=== PATIENT | female | born 1985 | race African-American/Black ===

== ENCOUNTER 2021-11-30 03:53 | Inpatient (IN) ==
[2021-11-30 04:32] LABS: Mucus,Urine Occasional /LPF (Occasional); RBC,Urine 1 /HPF (0-4); Squamous Epithelial Cell,Urine Occasional /HPF (0-10); Urine Appearance Clear (Clear); Urine Color Yellow (Yellow)
[2021-11-30 04:33] LABS: Bilirubin,Urine Negative (Negative); Blood, Urine Large mg/dL (Negative); Glucose,Urine (UA) Negative (Negative); Ketones,Urine 15 mg/dL (Negative); Nitrite,Urine Negative (Negative); Protein,Urine Negative (Negative); Urine Urobilinogen 0.2 eU/dL (<2.0); Urine pH 6.5 (4.5-8.0)
[2021-11-30] MEDS ORDERED: LACTATED RINGERS 250 ML IV ONE (05:31)
[2021-11-30] MEDS ORDERED: OXYTOCIN/LR 20 UNIT/1,000 ML BAG IV ONE ×2 (05:31→12:43)
[2021-11-30] MEDS ORDERED: miSOPROStoL 200 MCG TABLET RECTAL PRN (05:31)
[2021-11-30] MEDS ORDERED: LACTATED RINGERS 500 ML IV PRN (05:31)
[2021-11-30] MEDS ORDERED: METHYLERGONOVINE 0.2 MG/1 ML AMP IM PRN (05:31)
[2021-11-30] MEDS ORDERED: ONDANSETRON 4 MG/2 ML VIAL IV PRN ×2 (05:31→12:43)
[2021-11-30] MEDS ORDERED: TRANEXAMIC ACID 1,000 MG in SODIUM CHLORIDE 0.9% 100 ML IV PRN (05:31)
[2021-11-30] MEDS ORDERED: MEPERIDINE 50 MG/1 ML VIAL IV PRN (05:31)
[2021-11-30] MEDS ORDERED: CARBOPROST TROMETHAMINE 250 MCG/ML AMP IM PRN (05:31)
[2021-11-30] MEDS ORDERED: BUTORPHANOL 2 MG/ML VIAL IV PRN (05:31)
[2021-11-30 06:01] LABS: Basophils % 0.4 % (0.0-0.8); Eosinophils # 0.1 10*3/uL (0.0-0.87); Eosinophils % 0.6 % (0.00-10.9); Hemoglobin 10.3 GM/DL (12.0-16.0); Immature Granulocytes % 0.9 %; Immature Granulocytes Absolute 0.07 #; Lymphocytes # 1.7 10*3/uL (1.4-4.0); Lymphocytes % 21.4 % (21.3-54.2); Mean Corpuscular HGB Conc 32.2 GM/DL (32-36); Mean Corpuscular Volume 79.2 FL (87-102); Mean Platelet Volume 11.3 FL (9.6-12.0); Monocytes # 0.7 10*3/uL (0.11-0.8); Monocytes % 8.7 % (1.7-12.7); Platelet Count 181 T/CUMM (130-400); Red Blood Count 4.04 MC/CUMM (3.8-5.5); Red Cell Distribution Width 16.4 % (9.3-17.3); White Blood Count 7.8 T/CUMM (4-12)
[2021-11-30] MEDS ORDERED: AMPICILLIN INJ 2,000 MG in SODIUM CHLORIDE 0.9% 100 ML IV ONE (06:01)
[2021-11-30] MEDS: LACTATED RINGERS 1,000 ML IV SCH ×2 (06:12→07:40)
[2021-11-30] MEDS ORDERED: LACTATED RINGERS 250 ML IV PRN (06:59)
[2021-11-30] MEDS ORDERED: NALOXONE 0.4 MG/ML VIAL IV PRN (06:59)
[2021-11-30] MEDS ORDERED: CITRIC ACID/SODIUM CITRATE 30 ML UDCUP PO ONE (06:59)
[2021-11-30] MEDS ORDERED: LACTATED RINGERS 1,000 ML IV ONE (06:59)
[2021-11-30] MEDS ORDERED: hydrOXYzine HCL 25 MG/1 ML VIAL IM PRN (06:59)
[2021-11-30] MEDS ORDERED: diphenhydrAMINE 50 MG/1 ML VIAL IV PRN ×2 (06:59)
[2021-11-30] MEDS ORDERED: ONDANSETRON 4 MG/2 ML VIAL IV ONE (06:59)
[2021-11-30] MEDS ORDERED: FAMOTIDINE 20 MG/2 ML VIAL IV ONE (06:59)
[2021-11-30] MEDS ORDERED: PROMETHAZINE 25 MG/1 ML VIAL IM ONE (06:59)
[2021-11-30] MEDS ORDERED: LACTATED RINGERS 500 ML IV ONE (06:59)
[2021-11-30] MEDS ORDERED: ePHEDrine 50 MG/ML VIAL IV PRN (06:59)
[2021-11-30] MEDS ORDERED: fentaNYL 2 MCG/ROPIV 0.2% EPID 100 ML EPIDURAL SCH (07:00)
[2021-11-30] MEDS ORDERED: LACTATED RINGERS 1,000 ML IV SCH ×2 (07:00)
[2021-11-30] MEDS ORDERED: OXYTOCIN/D5LR 20 UNIT/1,000 ML PREMIX IV SCH (08:00)
[2021-11-30] MEDS ORDERED: OXYTOCIN/LR 20 UNIT/1,000 ML BAG IV SCH (08:30)
[2021-11-30] MEDS ORDERED: AMPICILLIN INJ 1,000 MG in SODIUM CHLORIDE 0.9% 100 ML IV SCH (10:00)
[2021-11-30 10:52] LABS: Bilirubin,Urine Small mg/dL (Negative); Blood, Urine Small mg/dL (Negative); Glucose,Urine (UA) Negative (Negative); Ketones,Urine >160 mg/dL (Negative); Mucus,Urine Moderate /LPF (Occasional); Nitrite,Urine Negative (Negative); Protein,Urine 100 mg/dL (Negative); RBC,Urine 23 /HPF (0-4); Squamous Epithelial Cell,Urine Occasional /HPF (0-10); Urine Appearance Clear (Clear); Urine Color Yellow (Yellow); Urine Specific Gravity > 1.030 (1.001-1.035); Urine Urobilinogen 0.2 eU/dL (<2.0); Urine pH 6.5 (4.5-8.0)
[2021-11-30] MEDS ORDERED: METHYLERGONOVINE 0.2 MG/1 ML AMP ONE (10:54)
[2021-11-30] MEDS ORDERED: TRANEXAMIC ACID 1,000 MG/10 ML VIAL ONE (10:54)
[2021-11-30] MEDS ORDERED: SODIUM CHLORIDE 0.9% 0 ML IV ONE (10:54)
[2021-11-30] MEDS ORDERED: CARBOPROST TROMETHAMINE 250 MCG/ML AMP IM ONE (10:54)
[2021-11-30] MEDS ORDERED: miSOPROStoL 200 MCG TABLET ONE (10:54)
[2021-11-30 12:36] LABS: Cord Venous Blood HCO3 20.6 MMOL/L; Cord Venous Blood PCO2 43.6 MMHG; Cord Venous Blood PO2 36.3
[2021-11-30] MEDS ORDERED: oxyCODONE/ACETAMINOPHEN 5-325 MG TABLET PO PRN ×2 (12:43)
[2021-11-30] MEDS ORDERED: WITCH HAZEL PADS 100/JAR TOP PRN (12:43)
[2021-11-30] MEDS ORDERED: RHO(D) IMMUNE GLOBULIN 300 MCG SYRINGE IM ONE (12:43)
[2021-11-30] MEDS ORDERED: HYDROCORTISONE 2.5% RECTAL CREAM 30 GM TUBE TOP PRN (12:43)
[2021-11-30] MEDS ORDERED: LANOLIN 50% CREAM 0.3 OZ TUBE TOP PRN (12:43)
[2021-11-30] MEDS ORDERED: MEASLES/MUMPS/RUBELLA VACCINE 0.5 ML VIAL SUBCUT ONE (12:43)
[2021-11-30] MEDS ORDERED: DIPH/TET/ACEL PERT BOOSTER VACCINE 0.5 ML VIAL IM ONE (12:43)
[2021-11-30] MEDS ORDERED: ACETAMINOPHEN 325 MG TABLET PO PRN (12:43)
[2021-11-30] MEDS ORDERED: BISACODYL 10 MG SUPP RECTAL PRN (12:43)
[2021-11-30] MEDS ORDERED: BENZOCAINE 20%/MENTHOL 0.5% SPRAY 56 GM CAN TOP PRN (12:43)
[2021-11-30] MEDS: IBUPROFEN 800 MG TABLET PO PRN (17:10)
[2021-11-30] MEDS: DOCUSATE SODIUM 100 MG CAPSULE PO SCH (21:34)
[2021-12-01 04:33] LABS: Basophils % 0.4 % (0.0-0.8); Eosinophils # 0.1 10*3/uL (0.0-0.87); Eosinophils % 0.9 % (0.00-10.9); Hematocrit 29.6 VOL% (35.7-47.0); Hemoglobin 9.2 GM/DL (12.0-16.0); Immature Granulocytes % 0.6 %; Immature Granulocytes Absolute 0.06 #; Lymphocytes % 19.3 % (21.3-54.2); Mean Corpuscular HGB Conc 31.1 GM/DL (32-36); Mean Corpuscular Volume 80.9 FL (87-102); Mean Platelet Volume 11.4 FL (9.6-12.0); Monocytes % 9.2 % (1.7-12.7); Neutrophils % 69.6 % (38.7-73.9); Platelet Count 161 T/CUMM (130-400); Red Blood Count 3.66 MC/CUMM (3.8-5.5); Red Cell Distribution Width 16.5 % (9.3-17.3); White Blood Count 10.6 T/CUMM (4-12)
[2021-12-01] MEDS: DOCUSATE SODIUM 100 MG CAPSULE PO SCH ×2 (08:50→22:54)
[2021-12-01] MEDS: IBUPROFEN 800 MG TABLET PO PRN (21:50)
[2021-12-02] MEDS: DOCUSATE SODIUM 100 MG CAPSULE PO SCH (08:25)
[2021-12-02 14:36] VITALS: BP 120/51
== END 2021-12-02 13:39 | disposition home or self-care (01) | DRG 807 ==
LOC: N.LD 03:53 → N.OB 14:40
PROVIDERS: ADMIT Specialist; ATTEND Specialist